=== PATIENT | male | born 1955 | race Caucasian/White ===

== ENCOUNTER 2021-03-24 17:12 | Emergency (ER) | payer OTHER ==
[~2021-03-24] VITALS: Ht 175.3 cm; Wt 80.0 kg
[2021-03-24] MEDS ORDERED: ULTRAM50 MG PO (19:04)
[2021-03-24 19:15] VITALS: BP 181/82
== END 2021-03-24 19:25 | disposition home or self-care (01) | DRG 563 ==
LOC: ED 17:12
DX: S43.401A Unspecified sprain of right shoulder joint, initial encounter (principal); I10 Essential (primary) hypertension; E78.00 Pure hypercholesterolemia, unspecified; X50.1XXA Overexertion from prolonged static or awkward postures, initial encounter; Y93.89 Activity, other specified; Y92.003 Bedroom of unspecified non-institutional (private) residence as the place of occurrence of the external cause

== ENCOUNTER 2024-05-19 14:30 | Emergency (ER) | payer OTHER ==
[~2024-05-19] VITALS: Ht 175.3 cm; Wt 102.0 kg
[~2024-05-19 14:30] MED LIST: ULTRAM50 MG PO
[2024-05-19 15:23] VITALS: BP 133/70
[2024-05-19] MEDS ORDERED: SODIUM CHLORIDE 0.9% 1,000 ML IV ONE (15:25)
[2024-05-19 15:30] VITALS: BP 132/67
[2024-05-19] MEDS ORDERED: METFORMIN HCL1000 MG PO (15:31)
[2024-05-19] MEDS ORDERED: AMLODIPINE BESY10 MG PO (15:32)
[2024-05-19] MEDS ORDERED: HYDROCHLOROTHIA50 MG PO (15:32)
[2024-05-19] MEDS ORDERED: ROSUVASTATIN CA10 MG PO (15:34)
[2024-05-19] MEDS ORDERED: COZAAR100 MG PO (15:35)
[2024-05-19] MEDS ORDERED: XARELTO20 MG PO (15:35)
[2024-05-19] MEDS ORDERED: GLUCOTROL EXTE2.5 M1 PO (15:36)
[2024-05-19 15:42] LABS: URINE BILIRUBIN - DIPSTICK Negative (NEGATIVE); URINE BLOOD DIPSTICK Large (NEGATIVE); URINE GLUCOSE - DIPSTICK Negative (NEGATIVE); URINE KETONE Trace mg/dL (NEGATIVE); URINE LEUK ESTERASE Negative (NEGATIVE); URINE NITRITE - DIPSTICK Negative (Negative); URINE PH 5.5 (4.5-8.0); URINE PROTEIN - DIPSTICK >=300 mg/dL (NEG-TRACE); URINE UROBILINOGEN - DIPSTICK 0.2 E.U./dL (0.2)
[2024-05-19 15:43] LABS: URINE COLOR Yellow
[2024-05-19 15:45] LABS: BASO% 0.3 % (0-3); EOS% 1.7 % (0-8); HEMATOCRIT 42.7 % (39.0-50.0); HEMOGLOBIN 14.3 g/dl (14.0-18.0); IMMATURE GRANULOCYTES 0.5 % (0.0-5.0); LYMPH% 16.2 % (15-41); MEAN CELL VOLUME 89.1 fL CALC (80.0-100.0); MEAN CORPUSCULAR HGB 29.9 pG CALC (26.0-32.0); MEAN CORPUSCULAR HGB CONC 33.5 g/dL CAL (32.0-36.0); NEUT# 12.46 thou/uL (1.82-7.42); NEUT% 74.3 % (42-76); RED BLOOD COUNT 4.79 mill/uL (4.70-6.10); RED CELL DISTRI WIDTH 13.5 % (11.5-15.5)
[2024-05-19 15:46] VITALS: BP 142/69
[2024-05-19 15:48] LABS: URINE RBC >100 RBC/hpf (0-5)
[2024-05-19 15:49] LABS: URINE SPERM FEW hpf (NONE-RARE)
[2024-05-19 16:00] VITALS: BP 133/62
[2024-05-19 16:02] LABS: ALBUMIN 3.9 g/dL (3.2-5.0); CREATININE 1.2 mg/dL (0.7-1.3); POTASSIUM 4.1 mmol/l (3.5-5.1); TOTAL PROTEIN 7.1 g/dL (6.3-8.2)
[2024-05-19] MEDS ORDERED: CEPHALEXIN500 MG PO (16:20)
[2024-05-19] MEDS ORDERED: REGLAN10 MG PO (16:21)
[2024-05-19 16:27] VITALS: BP 142/69
[2024-05-19] MEDS ORDERED: MACROBID100 M1 PO (20:06)
== END 2024-05-19 16:31 | disposition home or self-care (01) | DRG 204 ==
LOC: ED 14:30
PROVIDERS: Family Medicine
DX: R06.6 Hiccough (principal); N39.0 Urinary tract infection, site not specified; I48.20 Chronic atrial fibrillation, unspecified; I10 Essential (primary) hypertension; E11.9 Type 2 diabetes mellitus without complications; E78.5 Hyperlipidemia, unspecified; Z79.01 Long term (current) use of anticoagulants; Z79.84 Long term (current) use of oral hypoglycemic drugs; Z72.0 Tobacco use

== ENCOUNTER 2024-05-19 19:39 | Emergency (ER) | payer OTHER ==
[~2024-05-19] VITALS: Ht 175.3 cm; Wt 102.0 kg
[~2024-05-19 19:39] MED LIST changes: +AMLODIPINE BESY10 MG PO; +CEPHALEXIN500 MG PO; +COZAAR100 MG PO; +GLUCOTROL EXTE2.5 M1 PO; +HYDROCHLOROTHIA50 MG PO; +METFORMIN HCL1000 MG PO; +REGLAN10 MG PO; +ROSUVASTATIN CA10 MG PO; +XARELTO20 MG PO
[2024-05-19 19:51] VITALS: BP 144/75
[2024-05-19 20:00] VITALS: BP 132/78
[2024-05-19] MEDS ORDERED: MACROBID100 M1 PO (20:06)
[2024-05-19 20:12] VITALS: BP 132/78
[2024-05-19 20:23] VITALS: BP 158/71
== END 2024-05-19 20:30 | disposition home or self-care (01) | DRG 156 ==
LOC: ED 19:39
DX: H93.8X3 Other specified disorders of ear, bilateral (principal); T36.1X5A Adverse effect of cephalosporins and other beta-lactam antibiotics, initial encounter; I10 Essential (primary) hypertension; E78.00 Pure hypercholesterolemia, unspecified; Z72.0 Tobacco use